=== PATIENT | female | born 1950 | race Caucasian/White ===

== ENCOUNTER 2016-12-11 12:20 | Emergency (ER) | payer MEDICARE ==
[~2016-12-11] VITALS: Ht 167.6 cm; Wt 134.0 kg
[2016-12-11 12:28] VITALS: BP 160/98; PULSE 76; RESP 18; TEMP 97.6; O2SAT 95
[2016-12-11] MEDS ORDERED: PYRI1TAB5 (12:43)
[2016-12-11] MEDS ORDERED: LEVO125T4 PO (12:43)
[2016-12-11] MEDS ORDERED: CYTO25TA PO (12:43)
[2016-12-11] MEDS ORDERED: CYAN1TAB24 (12:43)
[2016-12-11] MEDS ORDERED: OMEP40CA2 PO (12:43)
[2016-12-11] MEDS ORDERED: FOLI800T PO (12:43)
[2016-12-11] MEDS ORDERED: GABA600T PO (12:43)
[2016-12-11] MEDS ORDERED: OXYB5TAB10 PO (12:43)
[2016-12-11] MEDS ORDERED: TYLETAB34 PO (12:43)
[2016-12-11] MEDS ORDERED: ASPI81CH CHEW (12:43)
[2016-12-11] MEDS ORDERED: KETOROLAC TROMETHAMINE 60 MG/2 ML (IM) VIAL IM ONE (13:30)
--- NOTE | 2016-12-11 13:50 | PD ---
HPI Chief Complaint: Pain: Acute or Chronic Time Seen by Provider: 13:10 Travel History International Travel<30 days: No Contact w/Intl Traveler<30days: No Traveled to known affect area: No History of Present Illness HPI 66-year-old right-handed female presents to the emergency room for evaluation of left thumb pain and swelling for the past 2 days. Patient denies any acute trauma or injury. States pain started gradually and has been increasing. It is localized to the MCP joint of the left thumb and radiates down into the wrist and into the tip of the thumb. She has been taking her prescribed Tylenol 3 and applying ice without any relief in symptoms. Pain is worsened with any range of motion of the thumb. States she has decreased range of motion because of the swelling. Patient denies any recent overuse injury. She denies paresthesias. Denies history of gout, pseudogout, inflammatory arthritis , or kidney disease. She has osteoarthritis in bilateral knees. PFSH Past Medical History Diminished Hearing: No Deep Vein Thrombosis: Yes (HX DVT, PE) GERD: Yes Genitourinary: Yes (overactive bladder) Musculoskeletal: Yes (neuropathy feet) Respiratory: Yes (HX PE) Thyroid Disease: Yes Influenza Vaccination: No ?: Not Dilation and Curettage (D&C): Yes (x3) Past Surgical History Section: Yes (x2) Tonsillectomy: Yes (T and A) Other Surgery: Yes (gastroplasty, hernia,) Social History Alcohol Use: No Tobacco Use: No Substance Use: No Allergies-Medications (Allergen,Severity, Reaction): Coded Allergies: Tetanus Vaccines and Toxoid (Verified Allergy, Severe, Anaphylaxis, ) doxycycline (Verified Allergy, Severe, Rash, 12/11/16) prednisone (Verified Allergy, Severe, Restlessness, 12/11/16) Reported Meds & Prescriptions Reported Meds & Active Scripts Active Reported Folic Acid 0.8 Mg Tab 800 Mcg PO DAILY B6 Natural (Pyridoxine HCl) 100 Mg Tab B12 (Cyanocobalamin) 1,000 Mcg Tab 5,000 Aspirin 81 Mg Chew 162 Mg CHEW DAILY Omeprazole 40 Mg Cap 40 Mg PO DAILY Ditropan (Oxybutynin Chloride) 5 Mg Tab 5 Mg PO DAILY Gabapentin 600 Mg Tab 600 Mg PO BID Levothyroxine (Levothyroxine Sodium) 125 Mcg Tab 125 Mcg PO DAILY Tylenol-Codeine #3 (Acetaminophen-Codeine) 300-30 mg Tab 1-2 Tab PO Q6H PRN Cytomel (Liothyronine Sodium) 25 Mcg Tab 25 Mcg PO DAILY Review of Systems Except as stated in HPI: all other systems reviewed are Neg Physical Exam Narrative GENERAL: Well-nourished, well-developed female in no acute distress. Afebrile. Ambulatory. SKIN: Focused skin assessment warm/dry. No significant erythema or ecchymosis of the left hand. HEAD: Normocephalic. EYES: No scleral icterus. No injection or drainage. NECK: Supple, trachea midline. No JVD or lymphadenopathy. CARDIOVASCULAR: Regular rate and rhythm without murmurs, gallops, or rubs. RESPIRATORY: Breath sounds equal bilaterally. No accessory muscle use. EXTREMITY: Left hand tender to palpation especially over the first MCP joint. Slight limited range of motion of the left thumb secondary to pain and swelling. Pain is less with passive range of motion. No increased warmth. Moderate edema of the left thumb and hypothenar eminence. Decreased opposition of thumb secondary to edema. Distal extremity neurovascularly intact with intact two point discrimination. Less than 2 second capillary refill distally. Data Data Last Documented VS Vital Signs Date Time Temp Pulse Resp B/P (MAP) Pulse Ox O2 Delivery O2 Flow Rate FiO2 12/11/16 12:28 97.6 76 18 160/98 (118) 95 Orders Orders Splint Or Brace Apply/Monitor (12/11/16 13:25) Ketorolac Inj (Toradol Inj) (12/11/16 13:30) MDM Medical Decision Making Medical Screen Exam Complete: Yes Emergency Medical Condition: Yes Medical Record Reviewed: Yes Differential Diagnosis Inflammatory arthritis, gout, pseudogout, De Quervain's tenosynovitis Narrative Course 66-year-old female presents to the emergency room for evaluation of left thumb pain and swelling for the past several days. Patient denies trauma or injury. Physical exam reveals moderate edema of the left hypothenar eminence. Tenderness to palpation of the same as well as into the wrist and thumb. Left thumb is neurovascularly intact with less than 2 second capillary refill distally. Limited range of motion of the thumb secondary to pain and swelling. There is less pain with passive range of motion. No increased warmth, erythema, or edema. No concern for septic arthritis. Likely inflammatory arthritis or tenosynovitis. No indication for imaging at this time. Patient will be treated conservatively with Toradol and wrist splint. Told to follow up with her primary care physician if symptoms persist. Told to return for worsening symptoms. She understands and agrees to plan. Diagnosis Primary Impression: Inflammatory arthritis Referrals: Primary Care Physician Additional Instructions: Rest and drink plenty of fluids. Take indomethacin as directed, as needed for pain. Apply ice to the affected area for 20 minutes at a time, as needed for pain and swelling. Follow-up with a primary care physician. Return to the emergency room for worsening symptoms. Med/Other Pt SpecificInfo: Prescription(s) given Disposition: 01 DISCHARGE HOME Condition: Stable Rochelle Mcbride Dec 11, 2016 13:50
[2016-12-11] MEDS ORDERED: INDO50CA PO (13:58)
== END 2016-12-11 14:20 | disposition home or self-care (01) ==
LOC: PHEFT 12:20
DX: M13.842 Other specified arthritis, left hand (principal); E07.9 Disorder of thyroid, unspecified; Z87.39 Personal history of other diseases of the musculoskeletal system and connective tissue; Z86.718 Personal history of other venous thrombosis and embolism; Z87.19 Personal history of other diseases of the digestive system; Z87.09 Personal history of other diseases of the respiratory system; Z87.448 Personal history of other diseases of urinary system; Z86.69 Personal history of other diseases of the nervous system and sense organs
CPT/HCPCS: 96372; 99284; J1885; L3908

== ENCOUNTER 2017-03-22 11:43 | Emergency (ER) | payer MEDICARE ==
[~2017-03-22 11:43] MED LIST: ASPI-516 CHEW; CYAN1TAB24; FOLI800T PO; GABA600T PO; INDO50CA PO; LEVO125T4 PO; LIOT25 PO; OMEP40CA2 PO; OXYB5TAB8 PO; TYLETAB34 PO; VITA100T10
[2017-03-22 11:54] VITALS: BP 149/86; PULSE 82; RESP 20; O2SAT 98
[2017-03-22] MEDS ORDERED: AUGM875T3 PO (12:13)
[2017-03-22] MEDS ORDERED: SODIUM CHLORIDE 0.9% FLUSH 10 ML FLUSH IVF PRN (12:15)
[2017-03-22] MEDS ORDERED: DEXAMETHASONE SOD PHOS 4 MG/ML VIAL IV PUSH ONE (12:15)
--- NOTE | 2017-03-22 12:17 | PD ---
HPI Chief Complaint: Chest Pain Time Seen by Provider: 11:49 Travel History International Travel<30 days: No Contact w/Intl Traveler<30days: No Traveled to known affect area: No History of Present Illness HPI The patient is a 66-year-old female who presents emergency department for cough and cold symptoms. The patient traveled to [place] several weeks ago for a wedding. The patient had difficulty with her years of that time, was seen in urgent care, placed on amoxicillin 875 twice a day. The patient's symptoms improved, however, which she return to [place] she developed cough and cold symptoms. The patient was seen by her primary physician 2 days ago and placed on Augmentin. However, the patient continues to have symptoms. The patient complains of postnasal drainage, sore throat, productive cough producing white sputum, wheezing, and mild shortness of breath. She does complain of upper abdominal pain with coughing but there is no abdominal pain at rest. She does note a few episodes of diarrhea without any vomiting. She denies any diffuse body aches. The patient states she cannot tolerate a flu shot, get sick after flu shots. The patient states she has a history of allergies to prednisone with "shakiness ". The patient has been on low-dose prednisone 20 mg per day without difficulty. The patient does note subjective fevers and chills. She denies any chest pain at rest, denies any chest pain with her symptoms, but does note wheezing. PFSH Past Medical History Arthritis: Yes Diminished Hearing: No Deep Vein Thrombosis: Yes (HX DVT, PE) GERD: Yes Genitourinary: Yes (overactive bladder) Musculoskeletal: Yes (neuropathy feet) Respiratory: Yes (HX PE) Thyroid Disease: Yes Influenza Vaccination: No ?: Not Dilation and Curettage (D&C): Yes (x3) Past Surgical History Section: Yes (x2) Tonsillectomy: Yes (T and A) Other Surgery: Yes (gastroplasty, hernia,) Social History Alcohol Use: No Tobacco Use: No Substance Use: No Allergies-Medications (Allergen,Severity, Reaction): Coded Allergies: Tetanus Vaccines and Toxoid (Verified Allergy, Severe, Anaphylaxis, 03/22/17 ) doxycycline (Verified Allergy, Severe, Rash, 03/22/17) prednisone (Verified Allergy, Severe, Restlessness, 03/22/17) Reported Meds & Prescriptions Reported Meds & Active Scripts Active Reported Augmentin (Amoxicillin-Clavulanate) 875-125 Mg Tab 1 Tab PO BID Folic Acid 0.8 Mg Tab 800 Mcg PO DAILY B6 Natural (Pyridoxine HCl) 100 Mg Tab B12 (Cyanocobalamin) 1,000 Mcg Tab 5,000 Aspirin 81 Mg Chew 162 Mg CHEW HS Omeprazole 40 Mg Cap 40 Mg PO DAILY Ditropan (Oxybutynin Chloride) 5 Mg Tab 5 Mg PO DAILY Gabapentin 600 Mg Tab 600 Mg PO BID Levothyroxine (Levothyroxine Sodium) 125 Mcg Tab 125 Mcg PO DAILY Tylenol-Codeine #3 (Acetaminophen-Codeine) 300-30 mg Tab 1-2 Tab PO Q6H PRN Cytomel (Liothyronine Sodium) 25 Mcg Tab 25 Mcg PO DAILY Review of Systems Except as stated in HPI: all other systems reviewed are Neg General / Constitutional: Positive: Fever, Chills HENT: Positive: Sore Throat, Congestion, Earache Cardiovascular: No: Chest Pain or Discomfort Respiratory: Positive: Cough, Shortness of Breath, Wheezing Gastrointestinal: Positive: Diarrhea, No: Nausea, Vomiting, Abdominal Pain Musculoskeletal: No: Myalgias, Arthralgias Skin: No Rash Physical Exam Narrative GENERAL: Awake, alert, pleasant 66-year-old female who appears her stated age is in no acute respiratory distress. SKIN: Focused skin assessment warm/dry. HEAD: Atraumatic. Normocephalic. EYES: Pupils equal and round. No scleral icterus. No injection or drainage. ENT: No nasal bleeding or discharge. Oropharynx reveals erythema. NECK: Trachea midline. No JVD. CARDIOVASCULAR: Regular rate and rhythm. No murmur appreciated. RESPIRATORY: No accessory muscle use. Type sounds in the bases with wheezes noted. GASTROINTESTINAL: Abdomen soft, non-tender, nondistended. No rebound tenderness. MUSCULOSKELETAL: No obvious deformities. No clubbing. No cyanosis. No edema. Superficial varicosities to the feet bilaterally. NEUROLOGICAL: Awake and alert. No obvious cranial nerve deficits. Motor grossly within normal limits. Normal speech. PSYCHIATRIC: Appropriate mood and affect; insight and judgment normal. Data Data Last Documented VS Vital Signs Date Time Temp Pulse Resp B/P (MAP) Pulse Ox O2 Delivery O2 Flow Rate FiO2 03/22/17 12:05 74 18 98 Room Air 03/22/17 11:54 149/86 (107) Orders Orders Electrocardiogram (03/22/17 11:44) Complete Blood Count With Diff (03/22/17 12:11) Comprehensive Metabolic Panel (03/22/17 12:11) B-Type Natriuretic Peptide (03/22/17 12:11) Magnesium (Mg) (03/22/17 12:11) Ckmb (Isoenzyme) Profile (03/22/17 12:11) Troponin I (03/22/17 12:11) Influenzae A/B Antigen (03/22/17 12:11) Iv Access Insert/Monitor (03/22/17 12:11) Ecg Monitoring (03/22/17 12:11) Oximetry (03/22/17 12:11) Oxygen Administration (03/22/17 12:11) Chest, Single Ap (03/22/17 12:11) Sodium Chloride 0.9% Flush (Ns Flush) (03/22/17 12:15) Albuterol-Ipratropium Neb (Duoneb Neb) (03/22/17 12:15) Lactic Acid (03/22/17 12:11) Dexamethasone Inj (Decadron Inj) (03/22/17 12:15) Labs Laboratory Tests Test 03/22/17 12:15 White Blood Count 4.7 TH/MM3 Red Blood Count 5.31 MIL/MM3 Hemoglobin 14.9 GM/DL Hematocrit 48.0 % Mean Corpuscular Volume 90.4 FL Mean Corpuscular Hemoglobin 28.1 PG Mean Corpuscular Hemoglobin Concent 31.1 % Red Cell Distribution Width 14.7 % Platelet Count 208 TH/MM3 Mean Platelet Volume 9.4 FL Neutrophils (%) (Auto) 55.1 % Lymphocytes (%) (Auto) 25.3 % Monocytes (%) (Auto) 14.5 % Eosinophils (%) (Auto) 4.5 % Basophils (%) (Auto) 0.6 % Neutrophils # (Auto) 2.6 TH/MM3 Lymphocytes # (Auto) 1.2 TH/MM3 Monocytes # (Auto) 0.7 TH/MM3 Eosinophils # (Auto) 0.2 TH/MM3 Basophils # (Auto) 0.0 TH/MM3 CBC Comment DIFF FINAL Differential Comment Blood Urea Nitrogen 13 MG/DL Creatinine 1.30 MG/DL Random Glucose 110 MG/DL Total Protein 7.2 GM/DL Albumin 3.2 GM/DL Calcium Level 8.5 MG/DL Magnesium Level 2.3 MG/DL Alkaline Phosphatase 91 U/L Aspartate Amino Transf (AST/SGOT) 44 U/L Alanine Aminotransferase (ALT/SGPT) 51 U/L Total Bilirubin 0.7 MG/DL Sodium Level 137 MEQ/L Potassium Level 4.0 MEQ/L Chloride Level 98 MEQ/L Carbon Dioxide Level 29.2 MEQ/L Anion Gap 10 MEQ/L Estimat Glomerular Filtration Rate 41 ML/MIN Lactic Acid Level 0.8 mmol/L Total Creatine Kinase 31 U/L Troponin I LESS THAN 0.02 NG/ML B-Type Natriuretic Peptide 17 PG/ML MDM Medical Decision Making Medical Screen Exam Complete: Yes Emergency Medical Condition: Yes Medical Record Reviewed: Yes Interpretation(s) EKG reveals normal sinus rhythm with a rate 80. No ischemic changes or ectopy noted. Last Impressions Chest X-Ray 03/22/17 1211 Signed Impressions: Service Date/Time: Wednesday, March 22, 2017 12:27 - CONCLUSION: 1. No active disease. Mild elevation right hemidiaphragm. Dave Rob MD Date/Time Source Procedure Growth Status 03/22/17 12:20 Nasal Aspirate Influenza Types A,B Antigen (GARCIA) - Final Positive For Flu A Antigen Complete Laboratory Tests Test 03/22/17 12:15 White Blood Count 4.7 TH/MM3 Red Blood Count 5.31 MIL/MM3 Hemoglobin 14.9 GM/DL Hematocrit 48.0 % Mean Corpuscular Volume 90.4 FL Mean Corpuscular Hemoglobin 28.1 PG Mean Corpuscular Hemoglobin Concent 31.1 % Red Cell Distribution Width 14.7 % Platelet Count 208 TH/MM3 Mean Platelet Volume 9.4 FL Neutrophils (%) (Auto) 55.1 % Lymphocytes (%) (Auto) 25.3 % Monocytes (%) (Auto) 14.5 % Eosinophils (%) (Auto) 4.5 % Basophils (%) (Auto) 0.6 % Neutrophils # (Auto) 2.6 TH/MM3 Lymphocytes # (Auto) 1.2 TH/MM3 Monocytes # (Auto) 0.7 TH/MM3 Eosinophils # (Auto) 0.2 TH/MM3 Basophils # (Auto) 0.0 TH/MM3 CBC Comment DIFF FINAL Differential Comment Blood Urea Nitrogen 13 MG/DL Creatinine 1.30 MG/DL Random Glucose 110 MG/DL Total Protein 7.2 GM/DL Albumin 3.2 GM/DL Calcium Level 8.5 MG/DL Magnesium Level 2.3 MG/DL Alkaline Phosphatase 91 U/L Aspartate Amino Transf (AST/SGOT) 44 U/L Alanine Aminotransferase (ALT/SGPT) 51 U/L Total Bilirubin 0.7 MG/DL Sodium Level 137 MEQ/L Potassium Level 4.0 MEQ/L Chloride Level 98 MEQ/L Carbon Dioxide Level 29.2 MEQ/L Anion Gap 10 MEQ/L Estimat Glomerular Filtration Rate 41 ML/MIN Lactic Acid Level 0.8 mmol/L Total Creatine Kinase 31 U/L Troponin I LESS THAN 0.02 NG/ML B-Type Natriuretic Peptide 17 PG/ML Differential Diagnosis Differential diagnosis includes bronchitis, pneumonia, reactive airway disease, URI, influenza, viral syndrome, pulmonary embolism, congestive heart failure, pleural effusion, atypical ACS. Narrative Course IV was established, labs are drawn and sent, and the patient was placed on cardiac telemetry monitoring and continuous pulse oximetry monitoring. EKG was ordered and interpreted. Chest x-rays obtained. Influenza screen was sent to lab. The patient was administered Decadron intravenously and duo nebs. Chest x -rays unremarkable. White count is normal. Lactic acid is normal. Patient's influenza is positive for influenza A. The patient was reassessed at 1:15 PM, her symptoms had improved after nebulizers. The patient be discharged home on Tamiflu and an albuterol inhaler. She is advised to return if symptoms worsen or progress. She will be provided a copy of her labs, chest x-ray results, influenza results at discharge. She is advised to follow-up with her primary physician. Diagnosis Primary Impression: Influenza A Patient Instructions: General Instructions Additional Instructions: Please provide a patient a copy of her lab results, flu results, and chest x- ray results at discharge. Albuterol inhaler Tamiflu as directed. Follow-up with her primary physician. Return if symptoms worsen or progress. Med/Other Pt SpecificInfo: Prescription(s) given Scripts Albuterol 18 GM Inh (Ventolin Hfa 18 GM Inh) 90 Mcg/Act Aer 2 PUFF INH Q4H Y for SHORTNESS OF BREATH, #1 INHALER 0 Refills Prov: Lele Prasad MD 03/22/17 Oseltamivir (Tamiflu) 75 Mg Cap 75 MG PO BID for Mgmt Viral Infection for 5 Days, #10 CAP 0 Refills Prov: Lele Prasad MD 03/22/17 Disposition: 01 DISCHARGE HOME Condition: Stable Lele Prasad MD Mar 22, 2017 12:17
[2017-03-22] MEDS: RESP: ALBUTEROL 2.5 MG/IPRATROPIUM 0.5 MG NEB (SCH) INH ×2 (12:25→12:26)
[2017-03-22 12:30] LABS: AUTOMATED NEUTROPHIL # 2.6 TH/MM3 (1.8-7.7); BASOPHIL % 0.6 % (0.0-2.0); EOSINOPHIL # 0.2 TH/MM3 (0-0.4); EOSINOPHIL % 4.5 % (0.0-4.0); HEMOGLOBIN 14.9 GM/DL (11.6-15.3); LYMPH % 25.3 % (9.0-44.0); LYMPHOCYTE # 1.2 TH/MM3 (1.0-4.8); MEAN CELL VOLUME 90.4 FL (80.0-100.0); MEAN CORPUSCULAR HEMOGLOBIN 28.1 PG (27.0-34.0); MEAN CORPUSCULAR HGB CONC 31.1 % (32.0-36.0); MEAN PLATELET VOLUME 9.4 FL (7.0-11.0); MONO % 14.5 % (0.0-8.0); MONOCYTE # 0.7 TH/MM3 (0-0.9); NEUT % 55.1 % (16.0-70.0); PLATELET COUNT 208 TH/MM3 (150-450); RED BLOOD COUNT 5.31 MIL/MM3 (4.00-5.30); RED CELL DISTRIBUTION WIDTH 14.7 % (11.6-17.2); WHITE BLOOD COUNT 4.7 TH/MM3 (4.0-11.0)
[2017-03-22 12:39] LABS: CHLORIDE 98 MEQ/L (98-107); SODIUM (NA) 137 MEQ/L (136-145)
[2017-03-22 12:42] LABS: CALCIUM 8.5 MG/DL (8.5-10.1)
--- NOTE | 2017-03-22 12:42 | RADRPT ---
EXAM DATE/TIME: 03/22/2017 12:27 [facility] COMPARISON: No previous studies available for comparison. INDICATIONS : Short of breath MEDICAL HISTORY : Deep venous thrombosis. Pulmonary embolism SURGICAL HISTORY : None. ENCOUNTER: Initial ACUITY: 1 day PAIN SCORE: 0/10 LOCATION: Bilateral chest FINDINGS: A single view of the chest demonstrates the lungs to be symmetrically aerated without evidence of mas s, infiltrate or effusion. The cardiomediastinal contours are unremarkable. Osseous structures are intact. CONCLUSION: 1. No active disease. Mild elevation right hemidiaphragm. Dave Rob MD on March 22, 2017 at 12:41 Board Certified Radiologist. This report was verified electronically.
[2017-03-22 12:43] LABS: ALBUMIN 3.2 GM/DL (3.4-5.0); BICARBONATE 29.2 MEQ/L (21.0-32.0); BLOOD UREA NITROGEN 13 MG/DL (7-18); GLUCOSE,RANDOM 110 MG/DL (74-106); MAGNESIUM 2.3 MG/DL (1.5-2.5)
[2017-03-22 12:46] LABS: ALT (GPT) 51 U/L (10-53); AST (GOT) 44 U/L (15-37); GLOMERULAR FILTRATION RATE 41 ML/MIN (>89)
[2017-03-22 12:48] LABS: TOTAL BILIRUBIN ADULT 0.7 MG/DL (0.2-1.0); TOTAL PROTEIN 7.2 GM/DL (6.4-8.2)
[2017-03-22 12:49] LABS: ALKALINE PHOSPHATASE 91 U/L (45-117)
[2017-03-22 12:51] LABS: TROPONIN I LESS THAN 0.02 NG/ML (0.02-0.05)
[2017-03-22] MEDS ORDERED: VENTAER INH (13:19)
[2017-03-22] MEDS ORDERED: OSEL75 PO (13:19)
[2017-03-22 13:22] VITALS: BP 104/71
[2017-03-22] MEDS ORDERED: SODIUM CHLORIDE 0.9% FLUSH 10 ML FLUSH IV FLUSH PRN (13:30)
[2017-03-22] MEDS ORDERED: DILTIAZEM INJ 125 MG in SODIUM CHLORIDE 0.9% INJ 100 ML IV PRN (13:30)
--- NOTE | 2017-03-22 20:58 | EKG ---
Date Performed: 03/22/2017 Time Performed: 11:56:12 PTAGE: 66 years EKG: Sinus rhythm NORMAL ECG INTERPRETATION BASED ON A DEFAULT AGE OF 40 YEARS NO PREVIOUS TRACING DOCTOR: Ariel Montgomery Interpretating Date/Time 03/22/2017 20:58:34
== END 2017-03-22 13:44 | disposition home or self-care (01) ==
LOC: PHED 11:43
DX: J09.X2 Influenza due to identified novel influenza A virus with other respiratory manifestations (principal); M19.90 Unspecified osteoarthritis, unspecified site; K21.9 Gastro-esophageal reflux disease without esophagitis; G62.9 Polyneuropathy, unspecified; E07.9 Disorder of thyroid, unspecified; Z86.718 Personal history of other venous thrombosis and embolism; Z86.711 Personal history of pulmonary embolism; Z79.82 Long term (current) use of aspirin; Z79.899 Other long term (current) drug therapy
CPT/HCPCS: 71045; 80053; 82550; 83605; 83735; 83880; 84484; 85025; 87804; 93005; 94664; 96374; 99284; J1100